=== PATIENT | male | born 1975 | race Caucasian/White ===

== ENCOUNTER 2017-10-09 16:45 | Emergency (ER) | payer BC, OTHER ==
[~2017-10-09] VITALS: Ht 167.6 cm; Wt 74.0 kg
[~2017-10-09 16:45] MED LIST: Z.0.NO CURRENT MEDS
[2017-10-09 16:46] VITALS: BP 128/79; PULSE 9; PULSE 99; RESP 16; TEMP 98.8; O2SAT 100
--- NOTE | 2017-10-09 17:42 | PD ---
HPI Chief Complaint: Injury Time Seen by Provider: 17:23 Travel History International Travel<30 days: No Contact w/Intl Traveler<30days: No Traveled to known affect area: No History of Present Illness HPI 41-year-old male presents to the ED for evaluation 8/10 right foot pain. Onset after the patient stepped out of his truck today. Pain is constant, throbbing, worsened by ambulation. He denies numbness, tingling, weakness, limitations to range of motion of the extremity. Denies previous injury to the area. He has been ambulatory on the extremity. No treatment attempt at home. PFSH Past Medical History Diminished Hearing: No Past Surgical History Body Medical Devices: hx of concussions Social History Alcohol Use: Yes (case of beer per week) Tobacco Use: No Substance Use: No Allergies-Medications (Allergen,Severity, Reaction): Coded Allergies: No Known Allergies (Unverified , 10/09/17) Reported Meds & Prescriptions Reported Meds & Active Scripts Active Ibuprofen 800 Mg Tab 800 Mg PO Q8H 5 Days Review of Systems Except as stated in HPI: all other systems reviewed are Neg Physical Exam Narrative GENERAL: Well-nourished, well-developed white male in no acute distress. SKIN: Focused skin assessment warm/dry. HEAD: Normocephalic. EYES: No scleral icterus. No injection or drainage. NECK: Supple, trachea midline. No JVD or lymphadenopathy. CARDIOVASCULAR: Regular rate and rhythm without murmurs, gallops, or rubs. RESPIRATORY: Breath sounds equal bilaterally. No accessory muscle use. GASTROINTESTINAL: Abdomen soft, non-tender, nondistended. MUSCULOSKELETAL: No cyanosis, or edema. FOCUSED RIGHT LOWER EXTREMITY EXAM: 2+ radial pulse. Point tenderness along the base of fifth metatarsal. Patient is able to flex and extend the toes. Resisted plantar flexion and dorsiflexion of the foot elicits pain in the area. Neurovascularly intact. BACK: Nontender without obvious deformity. No CVA tenderness. Data Data Last Documented VS Vital Signs Date Time Temp Pulse Resp B/P (MAP) Pulse Ox O2 Delivery O2 Flow Rate FiO2 10/09/17 16:46 98.8 99 16 128/79 (95) 100 Orders Orders Foot, Complete ([id number]) (10/09/17 17:39) Ice/Cold Pack (10/09/17 17:39) Robert Bandage (10/09/17 18:43) Post Op Boot (Shoe) (10/09/17 ) Ibuprofen (Motrin) (10/09/17 18:45) Ed Discharge Order (10/09/17 18:45) [facility] Medical Decision Making Medical Screen Exam Complete: Yes Emergency Medical Condition: Yes Differential Diagnosis Stress fracture versus avulsion fracture versus sprain versus strain versus contusion versus other Narrative Course 41-year-old male presents to the ED for evaluation 8/10 right foot pain. Onset after the patient stepped out of his truck today. Vitals reviewed. Physical exam reveals tenderness to palpation of the base of the fifth metatarsal. Exam otherwise unremarkable. X-ray reveals no acute bony injury. This is sprain. Patient's provided Robert wrap, postop shoe and a prescription for 800 mg ibuprofen. He is instructed to rest, ice, compress and elevate the extremity, take the medication as prescribed, follow with a spearer if symptoms fail to resolve. He was provided first dose in the ED. He was provided with a work note for the next 3 days. He indicated understanding of instructions. He is stable and discharged home. Diagnosis Primary Impression: Foot sprain Qualified Codes: S93.601A - Unspecified sprain of right foot, initial encounter Referrals: Any Oliver DPM Junior Designer Patient Instructions: Foot Sprain (ED), General Instructions Additional Instructions: Rest, ice, compress, elevate the extremity. Apply ice no longer than 10-15 minutes per hour a few times a day. 800 mg ibuprofen every 8 hours to reduce inflammation. Return to normal, gentle activity as tolerated. No running, jumping activities for the next few weeks. Follow up with spearer or primary care should symptoms fail to resolve. Return to the ED for any urgent or emergent medical condition. Med/Other Pt SpecificInfo: Prescription(s) given Scripts Ibuprofen (Ibuprofen) 800 Mg Tab 800 MG PO Q8H for 5 Days, #15 TAB 0 Refills Prov: Jimbo Paez MD 10/09/17 Disposition: 01 DISCHARGE HOME Condition: Stable Taylor Castro Oct 09, 2017 17:42
--- NOTE | 2017-10-09 18:19 | RADRPT ---
EXAM DATE/TIME: 10/09/2017 17:56 [facility] COMPARISON: No previous studies available for comparison. INDICATIONS : Patient jumped out of truck , unable to bear weight now, pain lateral side and 3-5th toes. MEDICAL HISTORY : None. SURGICAL HISTORY : None. ENCOUNTER: Initial ACUITY: 1 day PAIN SCORE: 8/10 LOCATION: Right foot FINDINGS: Three view examination of the right foot demonstrates no soft tissue swelling, dislocation, or fractu re. The tarsal bones appear intact. The interphalangeal and metatarsophalangeal joints are intact. The calcaneus is intact. Bony mineralization is normal. CONCLUSION: 1. No acute bony abnormality identified. Timmy Jang MD on October 09, 2017 at 18:15 Board Certified Radiologist. This report was verified electronically.
[2017-10-09] MEDS ORDERED: IBUP1TAB7 PO (18:44)
[2017-10-09] MEDS ORDERED: IBUPROFEN 800 MG TAB PO ONE (18:45)
== END 2017-10-09 19:18 | disposition home or self-care (01) ==
LOC: PHEFT 16:45
DX: S93.601A Unspecified sprain of right foot, initial encounter (principal); X58.XXXA Exposure to other specified factors, initial encounter
CPT/HCPCS: 73630; 99283; L3260